=== PATIENT | male | born 1975 | race Native Hawaiian/Other Pacific Islander ===

== ENCOUNTER 2016-06-17 17:47 | Emergency (ER) | payer OTHER ==
[~2016-06-17] VITALS: Ht 190.5 cm; Wt 97.5 kg
[2016-06-17 18:57] LABS: PLATELET COUNT 184 K/uL (142-355)
[2016-06-17 19:04] LABS: POTASSIUM 3.5 mmol/L (3.6-5.2); SODIUM 139 mmol/L (136-145)
[2016-06-17 20:10] VITALS: BP 155/89; TEMP 98.4
== END 2016-06-17 20:11 | disposition home or self-care (01) ==
LOC: ED 17:47
DX: S00.83XA Contusion of other part of head, initial encounter (principal); W22.8XXA Striking against or struck by other objects, initial encounter; Y92.098 Other place in other non-institutional residence as the place of occurrence of the external cause
CPT/HCPCS: 36415; 80053; 85027; 96374; 99283; J1885; J2405